=== PATIENT | female | born 1990 | race Caucasian/White ===

== ENCOUNTER 2021-02-18 10:51 | Inpatient (IN) ==
[~2021-02-18 10:51] MED LIST: *HR* Labetalol 20 MG/4 ML SYRINGE IVP ONE; *HR* Nalbuphine 10 MG/ML AMPUL IV PRN; Famotidine 20 MG/2 ML VIAL IVP PRN; Lidocaine 1% 20 ML MDV INFILT PRN; Metoclopramide 10 MG/2 ML VIAL IVP PRN; Naloxone 0.4 MG/ML INJ IVP PRN; Ondansetron 4 MG/2 ML VIAL IVP PRN
[2021-02-18] MEDS: Ringers Solution, Lactated 1,000 ML ONE (10:58)
[2021-02-18] MEDS ORDERED: *HR* Labetalol 20 MG/4 ML SYRINGE IVP ONE ×4 (11:01→13:59)
[2021-02-18] MEDS ORDERED: EPHEDrine 50 MG/ML VIAL IVP PRN (11:03)
[2021-02-18] MEDS: *HR* Labetalol 20 MG/4 ML SYRINGE IVP ONE ×2 (11:05→13:54)
[2021-02-18] MEDS ORDERED: miSOPROStoL 25 MCG TABLET PO SCH (11:15)
[2021-02-18] MEDS ORDERED: Epidural Premix (fent/bupiv) 110 ML EP SCH (11:15)
[2021-02-18 11:16] LABS: Amphetamine Screen,Urine Negative ng/mL (Cutoff=1000); Barbiturate Screen,Urine Negative ng/mL (Cutoff=200); Benzodiazepines Screen,Urine Negative ng/mL (Cutoff=200); Cannabinoid Screen,Urine Negative ng/mL (Cutoff = 50); Cocaine Screen,Urine Negative ng/mL (Cutoff= 300); Opiate Screen,Urine Negative ng/mL (Cutoff=300); Phencyclidine Screen,Urine Negative ng/mL (Cutoff=25)
[2021-02-18] MEDS ORDERED: Calcium Gluconate 1,000 MG/10 ML VIAL ONE (11:18)
[2021-02-18 11:23] LABS: Eosinophils % 0.2 %; Hemoglobin 14.1 g/dL (11.5-15.4); Immature Granulocytes % 1.1 % (0-4); Red Cell Distribution Width 13.7 % (11.5-14.5)
[2021-02-18 11:24] LABS: Basophils % 0.3 %; Immature Platelets 29.9 % (1.1-6.1); Lymphocytes # 1.6 K/mcL (0.6-4.6); Lymphocytes % 16.3 %; Mean Corpuscular HGB Conc 34.4 g/dL (31.6-35.5); Mean Corpuscular Hemoglobin 33.1 pg (28.0-33.3); Mean Corpuscular Volume 96.2 fL (83.0-100.0); Monocytes # 0.9 K/mcL (0.0-1.3); Monocytes % 9.4 %; Nucleated Red Blood Cells 0.4 /100 WBC (0); Platelet Count 148 K/mcL (140-400); Red Blood Count 4.26 M/mcL (3.82-4.97); Segmented Neutrophils % 72.7 %
[2021-02-18 11:25] LABS: Neutrophils # 7.3 K/mcL (1.6-8.9)
[2021-02-18 11:27] LABS: Alanine Aminotransferase 17 Units/L (7-52); Aspartate Amino Transferase 28 Units/L (13-39); BUN/Creatinine Ratio 15 (6-26); Blood Urea Nitrogen 18 mg/dL (6-20); Glucose 91 mg/dL (70-105); Lactate Dehydrogenase 242 Units/L (140-271); Uric Acid 7.7 mg/dL (2.3-7.6); eGFR For African Americans > 60 (> 60); eGFR For Non-African Americans 55 (> 60)
[2021-02-18 11:31] LABS: Creatinine,Urine 118 mg/dL; Protein/Creatinine Ratio,Urine 2.95 mg/mg (0.00-0.20)
[2021-02-18] MEDS: Magnesium Sulf 20 gm/SW 500mL 20 GM/500 ML IV.SOLN IVC SCH ×2 (11:56→23:09)
[2021-02-18 11:57] LABS: Bilirubin,Urine Negative (Negative); Blood,Urine Small (Negative); Clarity,Urine Clear (Clear); Color,Urine Yellow (Yellow); Glucose,Urine (UA) Normal (Normal); Ketones,Urine Negative (Negative); Leukocyte Esterase,Urine Negative (Negative); Mucus,Urine Few per lpf (None-Few); Nitrite,Urine Negative (Negative); PH,Urine 6.5 pH Units (5.0-8.0); Protein,Urine >=300 mg/dL (Neg-Trace); RBC,Urine 0-3 per hpf (0-3); Specific Gravity,Urine 1.019 (1.010-1.025); Squamous Epithelial Cell,Urine Few per hpf (None-Few); Urobilinogen,Urine Normal (Normal); WBC,Urine 0-3 per hpf (0-3)
[2021-02-18] MEDS ORDERED: Oxytocin 20 units/ LR 1000 mL 20 UNIT/1,000 ML BAG IVC ONE (16:54)
[2021-02-18 22:37] LABS: Basophils % 0.2 %; Hemoglobin 13.4 g/dL (11.5-15.4); Nucleated Red Blood Cells 0.2 /100 WBC (0); Red Cell Distribution Width 14.1 % (11.5-14.5); Segmented Neutrophils % 84.7 %
[2021-02-18 22:39] LABS: Hematocrit 39.7 % (35.3-44.9); Immature Granulocytes % 0.9 % (0-4); Immature Platelets 26.7 % (1.1-6.1); Mean Corpuscular HGB Conc 33.8 g/dL (31.6-35.5); Mean Corpuscular Hemoglobin 33.3 pg (28.0-33.3); Mean Corpuscular Volume 98.8 fL (83.0-100.0); Mean Platelet Volume 13.7 fL (9.4-12.4); Monocytes # 0.8 K/mcL (0.0-1.3); Monocytes % 6.2 %; Neutrophils # 10.6 K/mcL (1.6-8.9); Platelet Count 137 K/mcL (140-400); Red Blood Count 4.02 M/mcL (3.82-4.97); White Blood Count 12.5 K/mcL (4.3-11.1)
[2021-02-18 23:02] LABS: Alanine Aminotransferase 15 Units/L (7-52); Aspartate Amino Transferase 24 Units/L (13-39); BUN/Creatinine Ratio 21 (6-26); Blood Urea Nitrogen 16 mg/dL (6-20); eGFR For African Americans > 60 (> 60); eGFR For Non-African Americans > 60 (> 60)
[2021-02-19] MEDS ORDERED: Ringers Solution, Lactated 1,000 ML ONE ×3 (00:09→12:32)
[2021-02-19] MEDS: Magnesium Sulf 20 gm/SW 500mL 20 GM/500 ML IV.SOLN IVC SCH ×2 (07:45→19:52)
[2021-02-19 10:13] LABS: Basophils % 0.1 %; Hematocrit 41.4 % (35.3-44.9); Immature Granulocytes % 0.7 % (0-4); Immature Platelets 29.2 % (1.1-6.1); Lymphocytes % 6.5 %; Mean Corpuscular HGB Conc 33.8 g/dL (31.6-35.5); Mean Corpuscular Hemoglobin 33.5 pg (28.0-33.3); Mean Platelet Volume 13.7 fL (9.4-12.4); Monocytes % 6.3 %; Neutrophils # 13.8 K/mcL (1.6-8.9); Platelet Count 159 K/mcL (140-400); Red Blood Count 4.18 M/mcL (3.82-4.97); Red Cell Distribution Width 14.4 % (11.5-14.5); Segmented Neutrophils % 86.4 %
[2021-02-19 10:29] LABS: Alanine Aminotransferase 16 Units/L (7-52); Aspartate Amino Transferase 26 Units/L (13-39); BUN/Creatinine Ratio 18 (6-26); Blood Urea Nitrogen 19 mg/dL (6-20); Uric Acid 7.9 mg/dL (2.3-7.6); eGFR For African Americans > 60 (> 60); eGFR For Non-African Americans > 60 (> 60)
[2021-02-19 11:13] LABS: Magnesium > 8.0 mg/dL (1.6-2.6)
[2021-02-19] MEDS: Ringers Solution, Lactated 1,000 ML ONE (12:37)
[2021-02-19] MEDS ORDERED: Oxytocin 20 units/ LR 1000 mL 20 UNIT/1,000 ML BAG IVC ONE ×3 (15:02→19:50)
[2021-02-19] MEDS ORDERED: Measles/Mumps/Rubella Vacc 0.5 ML VIAL SQ PRN (19:52)
[2021-02-19] MEDS ORDERED: Magnesium Sulf 20 gm/SW 500mL 20 GM/500 ML IV.SOLN IVC SCH (19:52)
[2021-02-19] MEDS ORDERED: Rho Immune Globulin 1,500 UNIT SYRINGE IM PRN (19:52)
[2021-02-19] MEDS ORDERED: Oxytocin 20 units/ LR 1000 mL 20 UNIT/1,000 ML BAG IVC SCH (19:52)
[2021-02-19] MEDS ORDERED: Ondansetron 4 MG/2 ML VIAL IVP ONE (21:05)
[2021-02-20 05:59] LABS: Basophils % 0.2 %; Hematocrit 31.1 % (35.3-44.9); Hemoglobin 10.6 g/dL (11.5-15.4); Immature Granulocytes % 0.7 % (0-4); Immature Platelets 23.8 % (1.1-6.1); Lymphocytes # 1.6 K/mcL (0.6-4.6); Lymphocytes % 8.1 %; Mean Corpuscular HGB Conc 34.1 g/dL (31.6-35.5); Mean Corpuscular Hemoglobin 33.4 pg (28.0-33.3); Mean Corpuscular Volume 98.1 fL (83.0-100.0); Mean Platelet Volume 13.4 fL (9.4-12.4); Monocytes % 4.9 %; Neutrophils # 16.7 K/mcL (1.6-8.9); Nucleated Red Blood Cells 0.1 /100 WBC (0); Platelet Count 169 K/mcL (140-400); Red Blood Count 3.17 M/mcL (3.82-4.97); Segmented Neutrophils % 86.1 %; White Blood Count 19.4 K/mcL (4.3-11.1)
[2021-02-20] MEDS: Prenatal Vit/FA 1 EACH TABLET PO SCH (08:41)
[2021-02-20] MEDS: Acetaminophen 325 MG TABLET PO PRN ×2 (08:48→15:39)
[2021-02-20] MEDS ORDERED: COLACE PO SCH (09:00)
[2021-02-20] MEDS ORDERED: NON-FORMULARY MEDICATION 1 EACH EACH (Prenatal Caplet 1 TAB) PO SCH (09:00)
[2021-02-20] MEDS: NIFEdipine XL (24 HR) 30 MG TAB.ER.24 PO SCH (13:19)
[2021-02-20] MEDS: Ibuprofen 600 MG TABLET PO PRN ×2 (14:22→23:57)
[2021-02-20] MEDS ORDERED: Ondansetron 4 MG/2 ML VIAL IVP ONE (18:16)
[2021-02-21] MEDS: Acetaminophen 325 MG TABLET PO PRN ×2 (03:24→12:09)
[2021-02-21] MEDS: Prenatal Vit/FA 1 EACH TABLET PO SCH (07:54)
[2021-02-21] MEDS: Ibuprofen 600 MG TABLET PO PRN (07:55)
[2021-02-21] MEDS: NIFEdipine XL (24 HR) 30 MG TAB.ER.24 PO SCH (08:48)
[2021-02-21] MEDS ORDERED: NIFEdipine Immed Rel 10 MG CAPSULE PO ONE (09:35)
[2021-02-21] MEDS ORDERED: NIFEdipine XL (24 HR) 30 MG TAB.ER.24 PO STA (09:46)
[2021-02-21 12:19] VITALS: BP 143/77; TEMP 98.5; O2SAT 96
[2021-02-21 12:36] VITALS: PULSE 80
== END 2021-02-21 16:25 | disposition home or self-care (01) ==
LOC: 1NENULAB → 1NENUOBS 02-19 21:40
PROVIDERS: ADMIT Advanced Practice Midwife; ATTEND Advanced Practice Midwife